=== PATIENT | female | born 1975 | race Hispanic/Latino ===

== ENCOUNTER 2022-07-22 19:20 | Emergency (ER) | payer OTHER, SELFPAY ==
[~2022-07-22 19:20] MED LIST: Iopamidol 370 76% 100 ML VIAL ONE
[2022-07-22] MEDS ORDERED: Acetaminophen 500 MG TAB ONE (21:22)
== END 2022-07-22 21:34 | disposition home or self-care (01) ==
LOC: MADERS 19:20
DX: R10.816 Epigastric abdominal tenderness (principal); V89.2XXA Person injured in unspecified motor-vehicle accident, traffic, initial encounter
CPT/HCPCS: 70450; 71260; 72125; 74177; Q9967